=== PATIENT | male | born 1975 | race Caucasian/White ===

== ENCOUNTER 2017-05-06 14:00 | Outpatient (CLI) | payer BC | END 2017-05-06 14:01 | disposition home or self-care (01) | LOC: BICRAD 14:00 | PROVIDERS: ATTEND Family Medicine | DX: R07.9 Chest pain, unspecified (principal) | CPT/HCPCS: 71046 ==

== ENCOUNTER 2018-05-23 20:26 | Emergency (ER) | payer BC ==
[2018-05-23] MEDS ORDERED: predniSONE 20 MG TAB ONE (22:57)
[2018-05-23] MEDS ORDERED: Famotidine 20 MG TAB ONE (22:57)
== END 2018-05-23 23:19 | disposition home or self-care (01) ==
LOC: ERS 20:26
DX: T78.40XA Allergy, unspecified, initial encounter (principal); Z79.891 Long term (current) use of opiate analgesic; Z79.899 Other long term (current) drug therapy
CPT/HCPCS: 99283

== ENCOUNTER 2018-05-26 09:31 | Emergency (ER) | payer BC ==
[2018-05-26] MEDS ORDERED: Famotidine/PF 20 mg/2ml Vial ONE (09:41)
[2018-05-26] MEDS ORDERED: Dexamethasone 4 mg/ml Vial ONE (09:41)
== END 2018-05-26 12:27 | disposition home or self-care (01) ==
LOC: ERS 09:31
DX: T78.40XA Allergy, unspecified, initial encounter (principal); Z79.899 Other long term (current) drug therapy
CPT/HCPCS: 96374; 96375; J1100; S0028

== ENCOUNTER 2019-01-21 08:07 | Outpatient (CLI) | payer BC ==
--- NOTE | 2019-01-21 09:18 | MRI ---
MRI LUMBAR SPINE NONCONTRAST: HISTORY: Intervertebral disc disorder with radiculopathy. Low back pain. Worsening with bilateral lower extrem ity pain, numbness, and tingling. COMPARISON: None. FINDINGS: Appropriate T1 marrow signal intensity of the lumbar vertebrae. Lumbar spine vertebral body height is maintained. There is no fracture. No spondylolisthesis or spondylolysis. No significant STIR hyperintensity to suggest vertebral body edema or ligamentous injury. Appropriate signal intensity of the paraspinal muscles. Appropriate signal intensity of the solid org ans. Conus medullaris terminates at the mid L2 level. T12-L1:Adequate disc hydration. Minimal broad-based disc bulge. Minimal central canal stenosis. Mild bilateral neural foraminal narrowing. L1-L2:Mild/moderate loss of disc space height. Left subarticular disc protrusion. There is contact up on and displacement of the traversing left L2 nerve root. Overall there is mild central canal stenosis. Mild bilateral neural foraminal narrowing. Small amount of fluid in both facet joints. L2-L3:Adequate disc hydration. No significant posterior disc abnormality. There is ligamentum flavum thickening and facet hypertrophy. A small amount of fluid in both facet joints. No significant central canal stenosis. Bilaterally the neural foramina are patent. L3-L4:Adequate disc hydration without significant loss of disc space height. Central disc protrusion, ligament flavum thickening and facet hypertrophy result in mild to moderate central canal stenosis. Encroachment upon both subarticular zones with partial obscuration of the traversing right L4 nerve root. Minimal mass effect without obscuration of the traversing left L4 nerve root. Mild bilateral neural foraminal narrowing. L4-L5:Broad-based disc bulge with central disc protrusion. Ligament flavum thickening and facet hyper trophy. Resultant moderate to severe central canal stenosis. Mild bilateral foraminal narrowing. Fluid in the left facet joint. L5-S1:Central disc protrusion superimposed upon a broad-based disc bulge. There is a T2 and STIR hype rintensity involving the disc at the level of the right subarticular zone. Annular fissure is noted and abuts the traversing right S1 nerve root. There is contact upon with minimal flattening of the tr aversing left S1 nerve root. Mild central canal stenosis. Bilateral facet hypertrophy. Mild to moderate bilateral foraminal narrowing. IMPRESSION: Degenerative changes of the lumbar spine as detailed above. Transcribed Date/Time: 01/21/2019 9:58 AM
== END 2019-01-21 08:08 | disposition home or self-care (01) ==
LOC: TBSIIMAG 08:07
PROVIDERS: ATTEND Specialist
DX: M51.16 Intervertebral disc disorders with radiculopathy, lumbar region (principal); M47.26 Other spondylosis with radiculopathy, lumbar region
CPT/HCPCS: 72148

== ENCOUNTER 2019-03-08 08:05 | Day surgery (SDC) | payer BC ==
[2019-03-07 13:08] VITALS: BMI 37.3
[2019-03-08] MEDS ORDERED: Midazolam HCl 2 mg/2 ml Vial ONE (09:41)
[2019-03-08] MEDS ORDERED: Scopolamine 1.5 mg/72 hour Patch ONE (09:41)
[2019-03-08 09:56] LABS: #Basophils 0.1 thou/uL (0.0-0.2); #Eosinphils 0.3 thou/uL (0.0-0.7); #Lymphocytes 1.4 thou/uL (1.20-3.40); #Monocytes 0.6 thou/uL (0.11-0.59); #Neutrophils 4.2 thou/uL (1.40-6.50); %Basophils 0.9 % (0.0-1.0); %Eosinophils 4.1 % (0.0-10.0); %Lymphocytes 21.7 % (21.0-51.0); %Monocytes 8.8 % (0.0-10.0); %Neutrophils 64.5 % (42.0-75.0); Hemoglobin 14.9 g/dL (14.0-18.0); Mean Corpuscular HGB CONC 33.1 g/dL (32.0-36.0); Mean Corpuscular Hemoglobin 29.6 pg (27.0-31.0); Mean Corpuscular Volume 89.5 fL (78.0-98.0); Mean Platelet Volume 9.1 fL (7.4-10.4); Platelet Count 219 thou/uL (130-400); RBC Distribution Width 11.9 % (11.5-14.5); Red Blood Cell (RBC) Count 5.02 mill/uL (4.70-6.10); White Blood Cell (WBC) Count 6.5 thou/uL (4.8-10.8)
[2019-03-08 10:02] LABS: PTT 27.4 SEC (22.9-36.1); Prothrombin Time 12.9 SEC (12.0-14.7)
[2019-03-08 10:27] LABS: Anion Gap 12 mmol/L (10-20); BUN (Urea Nitrogen) 12 mg/dL (8.9-20.6); Calc. Creatinine Clearance 148 mL/min (70-130); Calcium 9.6 mg/dL (7.8-10.44); Carbon Dioxide 27 mmol/L (22-29); Chloride 105 mmol/L (98-107); Estimated GFR-MDRD 76; Glucose 83 mg/dL (70-105); Potassium 4.1 mmol/L (3.5-5.1); Sodium 140 mmol/L (136-145)
[2019-03-08] MEDS ORDERED: PHENYLEPHRINE-NS 100 MCG/ML 10 ML SYRINGE ONE (11:14)
[2019-03-08] MEDS ORDERED: Dexamethasone 20 MG/5 ML VIAL ONE (11:14)
[2019-03-08] MEDS ORDERED: Lidocaine 1% PF 5 ML VIAL ONE (11:14)
[2019-03-08] MEDS ORDERED: PROPOFOL 200 MG/20 ML VIAL ONE (11:14)
[2019-03-08] MEDS ORDERED: Glycopyrrolate 0.2 MG/ML 5 ML SYRINGE ONE (11:14)
[2019-03-08] MEDS ORDERED: Rocuronium Bromide 10 MG/ML (10ML VIAL) ONE (11:14)
[2019-03-08] MEDS ORDERED: Ondansetron PF 4 MG/2 ML Vial ONE (11:14)
[2019-03-08] MEDS ORDERED: Thrombin 5000 UNITS/5 ML VIAL ONE ×2 (11:15→13:49)
[2019-03-08] MEDS ORDERED: Fentanyl 100 MCG/2 ML VIAL ONE ×3 (11:32→16:41)
[2019-03-08] MEDS ORDERED: PACU-Morphine 4MG/ML VIAL SLOW IVP PRN (14:05)
[2019-03-08] MEDS ORDERED: Ondansetron HCl/PF 4 MG/2 ML Vial IVP PRN (14:05)
[2019-03-08] MEDS ORDERED: Promethazine HCl 25 MG/ML VIAL IM PRN (14:05)
[2019-03-08] MEDS ORDERED: HYDROmorphone 2 MG/ML VIAL SLOW IVP PRN (14:05)
[2019-03-08] MEDS ORDERED: Morphine Sulfate 2 MG/ML SYRINGE SLOW IVP PRN (14:05)
[2019-03-08] MEDS ORDERED: Promethazine HCl 25 MG/ML VIAL SLOW IVP PRN (14:05)
[2019-03-08] MEDS ORDERED: HYDROmorphone 2 MG/ML VIAL ONE (14:32)
[2019-03-08] MEDS ORDERED: Mag-Al 1200 mg/1200 mg/30 ML UDCUP PO PRN (15:12)
[2019-03-08] MEDS ORDERED: Fleet Enema 133 ML BOT PR PRN (15:12)
[2019-03-08] MEDS ORDERED: HYDROcodone/Acetaminophen 7.5/325 mg Tablet PO PRN (15:12)
[2019-03-08] MEDS ORDERED: Bisacodyl 10 MG SUPP PR PRN (15:12)
[2019-03-08] MEDS ORDERED: Milk Of Magnesia 30 ML UDCUP PO PRN (15:12)
[2019-03-08] MEDS ORDERED: Acetaminophen 325 MG TAB PO PRN (15:12)
[2019-03-08] MEDS ORDERED: PROVENTIL INHALER 6.7 G (200 INHALATIONS) INH PRN (15:15)
[2019-03-08] MEDS: CEFAZOLIN 2 GM in Premix Bag 1 BAG IVPB SCH (18:34)
[2019-03-08] MEDS: Sodium Chloride 0.9% 1,000 ML IV SCH (18:34)
[2019-03-08] MEDS: Morphine 2 MG/ML SYRINGE SLOW IVP PRN ×2 (18:38→22:43)
[2019-03-08] MEDS: Ondansetron PF 4 MG/2 ML Vial IVP PRN (19:46)
[2019-03-08] MEDS: tiZANidine HCl 4 MG TAB PO PRN (22:42)
[2019-03-08] MEDS: traMADol HCl 50 MG TAB PO PRN (22:42)
[2019-03-08] MEDS ORDERED: Dexamethasone 10 MG/ML VIAL SLOW IVP SCH (23:45)
[2019-03-08] MEDS: Methocarbamol 500 MG TAB PO PRN (23:54)
[2019-03-09] MEDS: HYDROcodone/Acetaminophen 7.5/325 mg Tablet PO PRN ×5 (01:28→22:43)
[2019-03-09] MEDS: CEFAZOLIN 2 GM in Premix Bag 1 BAG IVPB SCH (01:30)
[2019-03-09] MEDS: Sodium Chloride 0.9% 1,000 ML IV SCH ×2 (04:07→15:51)
[2019-03-09] MEDS: Methocarbamol 500 MG TAB PO PRN (05:59)
[2019-03-09] MEDS ORDERED: FLU VACC QS2019-20(6MOS UP)/PF 60 MCG/0.5 ML SYRINGE IM ONE (09:00)
[2019-03-09] MEDS ORDERED: Diazepam 5 MG TAB PO PRN (09:29)
[2019-03-09] MEDS: Loratadine 10 MG TAB PO SCH (09:36)
--- NOTE | 2019-03-09 09:36 | PRG ---
DATE OF SERVICE: 03/09/2019 Mr. Forbes's postoperative day #1 from multilevel lumbar decompression. He has had improvement in his leg pain. Muscle spasms have been an issue. We will change Skelaxin to Valium and plan to mobilize him today. His hemodynamics are stable and he is already voiding. We will assess his urine output via postvoid residual as well. We are pleased with how he is doing. Likely discharge tomorrow. Job ID: [id number]
[2019-03-09] MEDS: Fluticasone Propionate Nasal Spray 16 gm Bottle NASAL SCH (09:58)
--- NOTE | 2019-03-09 13:40 | OP ---
DATE OF PROCEDURE: 03/08/2019 LOCATION: OR 12. CERTIFIED COURT/MEDICAL INTERPRETER: Lynnette Myers PA-C PREPROCEDURE DIAGNOSIS: Multilevel lumbar stenosis with low back and leg pain with left L1-L2 disk extrusion. POSTPROCEDURE DIAGNOSIS: Multilevel lumbar stenosis with low back and leg pain with left L1-L2 disk extrusion. PROCEDURES PERFORMED: 1. Left L1-L2 hemilaminotomy, foraminotomy, and diskectomy. 2. L2-L3, L3-L4, L4-L5, and L5-S1 laminectomies, partial facetectomies, and foraminotomies. DESCRIPTION OF PROCEDURE: After informed consent was obtained from the patient, the patient was brought to the OR. Proper patient, pause, and identification were carried out. He was placed under excellent general endotracheal anesthesia and positioned prone on the OR table. All appropriate points were padded. We identified the L1, L2, L3, L4, L5, and S1 dorsal spines and lamina. A linear noemi was made over this area. This region was sterilely cleansed, prepared, and draped. Proper patient, pause, and identification were carried out. The wound was then opened with a combination of sharp, monopolar, and blunt dissection and the L1-S1 segments were exposed. Localization film confirmed our area of interest and performed a left L1-L2 hemilaminotomy, foraminotomy, and diskectomy. We then moved on to perform an L2-L3, L3-L4, L4-L5, and L5-S1 laminectomies, partial facetectomies, and foraminotomies with excellent decompression of common dural tube and nerve roots. Copious irrigation occurred throughout as did maximizing hemostasis. The wound was then closed in anatomic layers following sprinkling of vancomycin powder. The patient emerged from anesthesia. Job ID: [id number]
[2019-03-09] MEDS: traMADol HCl 50 MG TAB PO PRN (20:20)
[2019-03-10] MEDS: HYDROcodone/Acetaminophen 7.5/325 mg Tablet PO PRN ×2 (04:22→11:32)
[2019-03-10] MEDS ORDERED: Methocarbamol 500 MG TAB PO PRN (08:08)
[2019-03-10] MEDS: Sodium Chloride 0.9% 1,000 ML IV SCH ×2 (09:14→22:12)
[2019-03-10] MEDS: Loratadine 10 MG TAB PO SCH (09:15)
[2019-03-10] MEDS: tiZANidine HCl 4 MG TAB PO PRN ×2 (09:15→16:45)
[2019-03-10] MEDS: Acetaminophen/Codeine 30-300mg Tablet PO PRN ×2 (09:16→16:45)
[2019-03-10] MEDS: Dexamethasone 4 MG TAB PO SCH ×3 (09:18→22:09)
[2019-03-10] MEDS: Fluticasone Propionate Nasal Spray 16 gm Bottle NASAL SCH (09:19)
--- NOTE | 2019-03-10 09:20 | PRG ---
DATE OF SERVICE: 03/10/2019 This is Oscar Orr PA-C dictating a report for Jeff Brock MD. Mr. Forbes is postoperative day #2 having undergone multilevel lumbar laminectomies. He continues with significant muscle spasm in his low back. He states he does not have pain, but when he has any type of movement, especially reaching or walking, getting in and out of bed, his pain is severe. He was initiated on the Valium, however, this is not proven to be very effective and he states he had better improvement with steroids and Robaxin. We will adjust his medications accordingly. I have begun him on a 4-day Decadron taper to see if this will help improve his pain as well as discontinuing the Valium and adding Robaxin again. The patient denies leg pain. He has made 9 to 12 laps around the nurses' station over the past 24 hours. He is pleased with improvement in his leg pain, however, continues with severe back pain. We have also ordered an ice pack and physical therapy consult. The patient will likely need one more overnight stay, but we will check on him this afternoon to see how his pain has improved with the new changes in medications. He continues with excellent strength in the bilateral lower extremities. Please call with any changes in the patient's neurologic status. Otherwise, we will continue to monitor his pain and plan for discharge either later today or tomorrow. Job ID: [id number]
[2019-03-10] MEDS: Ondansetron PF 4 MG/2 ML Vial IVP PRN (16:45)
[2019-03-11 03:35] VITALS: BP 127/71; TEMP 97.6
[2019-03-11] MEDS: Dexamethasone 1 MG TAB PO SCH ×2 (05:21→11:35)
[2019-03-11] MEDS: tiZANidine HCl 4 MG TAB PO PRN ×2 (05:28→11:35)
[2019-03-11] MEDS: Acetaminophen/Codeine 30-300mg Tablet PO PRN ×2 (05:28→11:35)
[2019-03-11] MEDS: Loratadine 10 MG TAB PO SCH (08:50)
[2019-03-11] MEDS: Fluticasone Propionate Nasal Spray 16 gm Bottle NASAL SCH (08:56)
[2019-03-11] MEDS: Sodium Chloride 0.9% 1,000 ML IV SCH (08:56)
--- NOTE | 2019-03-11 23:14 | DIS ---
DATE OF ADMISSION: 03/08/2019 DATE OF DISCHARGE: 03/11/2019 This is Oscar Orr PA-C dictating a report for Jeff Brock MD. DISCHARGE DIAGNOSES: 1. Lumbar stenosis with lumbar radiculopathy. 2. Seasonal allergies. 3. Asthma. HOSPITAL COURSE: Mr. Forbes was admitted to undergo multilevel lumbar laminectomies and diskectomy with Dr. Brock. His surgery was without complication. He required several overnight stays for adequate muscular pain control. Immediately after surgery and throughout his hospital course, the patient had resolution of his bilateral lower extremity pain. His main difficulty was muscle spasm and several different combinations of medications were tried and eventually, his pain improved enough for him to be safe to discharge home. At the time of discharge, he was very pleased with his outcome postoperatively. He had met criteria for discharge, and appropriate patient education and outpatient followups provided. I also provided him appropriate prescription medications for continued pain control. The patient certainly is to call the office with questions or concerns prior to his next followup appointment as scheduled with our office. At the time of discharge, the patient had excellent strength in the bilateral lower extremities. Job ID: [id number]
[2019-03-12] MEDS ORDERED: Dexamethasone 1 MG TAB PO SCH (06:00)
[2019-03-13] MEDS ORDERED: Dexamethasone 1 MG TAB PO SCH (06:00)
--- NOTE | 2019-03-14 18:37 | EKG ---
Test Reason : PREOP Blood Pressure : / mmHG Vent. Rate : 071 BPM Atrial Rate : 071 BPM P-R Int : 172 ms QRS Dur : 092 ms QT Int : 420 ms P-R-T Axes : 043 -17 050 degrees QTc Int : 456 ms Normal sinus rhythm Normal ECG No previous ECGs available Confirmed by JAZMYN REZA, DR. Medina ([id number]) on 03/14/2019 6:36:36 PM Referred By: TERRANCE Confirmed By:DR. Adam ELDRIDGE MD
== END 2019-03-11 13:37 | disposition home or self-care (01) ==
LOC: SDC 08:05 → SURG A 17:38 → SDC 03-11 13:37
PROVIDERS: ATTEND Surgery
PROC: 0ST20ZZ Resection of Lumbar Vertebral Disc, Open Approach (ICD-10-PCS; principal; 2019-03-08)
PROC: 01NB0ZZ Release Lumbar Nerve, Open Approach (ICD-10-PCS; principal; 2019-03-08)
DX: M48.062 Spinal stenosis, lumbar region with neurogenic claudication (principal); M51.16 Intervertebral disc disorders with radiculopathy, lumbar region; J45.909 Unspecified asthma, uncomplicated; Z79.899 Other long term (current) drug therapy
CPT/HCPCS: 76000; 80048; 85025; 85610; 85730; 93005; 93010; J0690; J1100; J1170; J2001; J2250; J2270; J2405; J2704; J3010; J3370; J3490; J8540